=== PATIENT | female | born 1995 | race Hispanic/Latino ===

== ENCOUNTER 2018-05-30 16:42 | Emergency (ER) | payer BC, OTHER, SELFPAY ==
[2018-05-30 17:38] LABS: Urine Blood TRACE (NEG); Urine Glucose NEGATIVE (NEG); Urine Protein NEGATIVE (NEG)
[2018-05-30 17:47] LABS: Absolute Lymphocytes (CBC) 2.2 K/uL (0.7-4.9); Absolute Monocytes 0.6 K/uL (0.1-1.3); Absolute Neutrophil 6.5 K/uL (1.8-8.0); Basophils % 0.4 % (0-1.3); Eosinophils % 3.1 % (0-4.4); Hematocrit 37.3 % (36.0-45.0); Lymphocytes % 22.4 % (15.3-44.8); MCH 28.1 pg (27.0-35.0); MCV 80.8 fL (80-100); Monocytes % 6.1 % (3.3-12.3); RBC Red Blood Cell Count 4.61 M/uL (3.86-4.86)
[2018-05-30 17:57] LABS: Urine Bacteria <20 /HPF (<20); Urine Culture Reflex Order NOT NEEDED; Urine RBC <5 /HPF (NONE SEEN)
[2018-05-30 18:17] LABS: ALT/SGPT 27 U/L (12-78); AST/SGOT 13 U/L (15-37); Albumin 3.3 g/dL (3.4-5.0); Alkaline Phosphatase 57 U/L (45-117); BUN Blood Urea Nitrogen 9 mg/dL (7-18); Bicarbonate 26 mmol/L (21-32); Bilirubin Direct < 0.1 mg/dL (0-0.2); Bilirubin Total 0.2 mg/dL (0.2-1.0); Glucose Level 84 mg/dL (74-106); HCG, Quantitative 35308 mIU/mL (1-3); Lipase 157 U/L (73-393); Potassium 3.8 mmol/L (3.5-5.1); Protein, Total 6.8 g/dL (6.4-8.2); Sodium Level 139 mmol/L (136-145)
--- NOTE | 2018-05-30 18:34 | RAD REPORT ---
EXAM DESCRIPTION: US - Abdomen Exam Limited - 05/30/2018 6:17 pm CLINICAL HISTORY: Abdominal pain. COMPARISON: None. FINDINGS: The gallbladder wall is not thickened. A gallstone is not seen. A 4 millimeter polyp is s een The biliary tree is normal caliber. IMPRESSION: 4 millimeter gallbladder polyp.
--- NOTE | 2018-05-30 18:37 | RAD REPORT ---
EXAM DESCRIPTION: US - Matter Richard Hyde 1 - 05/30/2018 6:17 pm CLINICAL HISTORY: with vaginal bleeding COMPARISON: None FINDINGS: Single intrauterine is seen with a crown-rump length 5.5 centimeters. Amniotic f luid is normal. Placenta is anterior. A subchorionic/retroplacental bleed is not noted. The cervix me asures 3.6 centimeters. Cardiac activity 168 beats per minute. No significant free fluid is noted. IMPRESSION: Single live into breech presentation. Estimated gestational age 12 weeks 1 day BENEDICTO 12/11/2018 If a survey is desired it should be performed in about 6 weeks
--- NOTE | 2018-05-30 19:07 | EDPHYS ---
Physician Documentation [facility] Name: Bucky Goldberg Age: 23 yrs Sex: Female : 1995 Arrival Date: 05/30/2018 Time: 16:45 Bed 7 Private MD: Paulo Catherine S ED Physician Eliel Lee HPI: 05/30 17:10 This 23 yrs old Female presents to ER via Ambulatory with complaints of cp Vaginal Bleeding, + Preg <12wks. 17:10 The patient presents to the emergency department with abdominal pain, of the right cp upper quadrant and left upper quadrant, vaginal bleeding, that is light. The estimated gestational age is 12 weeks. 17:10 course: care: private OB physician, Dr. Fortune, Leakage of Fluid: cp none appreciated, Ultrasound: the patient had an ultrasound. 17:10 Previous pregnancies: the patient has never been . Associated signs and cp symptoms: Pertinent positives: vaginal bleeding, Pertinent negatives: abdominal pain, dysuria, frequency. 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 - Social history:: Smoking status: Patient/guardian denies using tobacco. - Ebola Screening: : Patient negative for fever greater than or equal to 101.5 degrees Fahrenheit, and additional compatible Ebola Virus Disease symptoms Patient denies exposure to infectious person Patient denies travel to an Ebola-affected area in the 21 days before illness onset No symptoms or risks identified at this time. ROS: 17:15 Constitutional: Negative for body aches, chills, fever, poor PO intake. cp 17:15 Eyes: Negative for injury, pain, redness, and discharge. cp 17:15 Cardiovascular: Negative for chest pain, palpitations. 17:15 Respiratory: Negative for cough, shortness of breath, wheezing. 17:15 Abdomen/GI: Negative for abdominal pain, nausea, vomiting, and diarrhea, constipation. 17:15 Back: Negative for pain at rest, pain with movement, radiated pain. 17:15 : Positive for vaginal bleeding, Negative for urinary symptoms. 17:15 Skin: Negative for cellulitis, rash. 17:15 Neuro: Negative for altered mental status, dizziness, headache, weakness. 17:15 All other systems are negative. Exam: 17:22 Constitutional: The patient appears in no acute distress, alert, awake, non-toxic, well cp developed, well nourished. 17:22 Head/Face: Normocephalic, atraumatic. cp 17:22 Eyes: Periorbital structures: appear normal, Conjunctiva: normal, no exudate, no injection, Sclera: no appreciated abnormality, Lids and lashes: appear normal, bilaterally. 17:22 ENT: External ear(s): are unremarkable, Nose: is normal, Mouth: is normal, Posterior pharynx: is normal, airway is patent, no erythema, no exudate. 17:22 Neck: External neck: is normal. 17:22 Chest/axilla: Inspection: normal, Palpation: is normal, no crepitus, no tenderness. 17:22 Cardiovascular: Rate: normal, Rhythm: regular. 17:22 Respiratory: the patient does not display signs of respiratory distress, Respirations: normal, no use of accessory muscles, no retractions, no splinting, no tachypnea, labored breathing, is not present, Breath sounds: are clear throughout, no decreased breath sounds, no stridor, no wheezing. 17:22 Abdomen/GI: Inspection: abdomen appears normal, Bowel sounds: active, all quadrants, Palpation: abdomen is soft and non-tender, in all quadrants, involuntary guarding, is not appreciated. 17:22 Back: CVA tenderness, is absent. 17:22 Skin: cellulitis, is not appreciated, no rash present. 17:22 Neuro: Orientation: to person, place \T\ time. Mentation: is normal, Cerebellar function: is grossly normal, Motor: moves all fours, strength is normal, Sensation: no obvious gross deficits, Gait: is steady. Vital Signs: 16:49 BP 120 / 73; Pulse 79; Resp 18; Temp 97.7; Pulse Ox 100% on R/A; Weight 79.38 kg; aj Height 5 ft. 0 in. (152.40 cm); 17:41 BP 114 / 67; Pulse 77; Resp 17; Pulse Ox 100% on R/A; Pain 0/10; tw2 18:40 BP 117 / 73; Pulse 85; Resp 17; Pulse Ox 100% on R/A; tw2 16:49 Body Mass Index 34.18 (79.38 kg, 152.40 cm) aj MDM: 16:55 Patient medically screened. cp 19:05 Data reviewed: vital signs, nurses notes, lab test result(s), radiologic studies, cp ultrasound. 19:05 Differential diagnosis: STD, ectopic . Counseling: I had a detailed discussion cp with the patient and/or guardian regarding: the historical points, exam findings, and any diagnostic results supporting the discharge/admit diagnosis, lab results, radiology results, the need for outpatient follow up, an OB/Gyne specialist, to return to the emergency department if symptoms worsen or persist or if there are any questions or concerns that arise at home. 05/30 17:03 Order name: Urine Culture [facility] 05/30 17:03 Order name: Urine Microscopic Only; Complete Time: 18:39 [facility] 05/30 18:40 Interpretation: Normal except: UWBC 5-10; SQEPI 5-10. 05/30 17:12 Order name: Urine Dipstick--Ancillary (enter results); Complete Time: 18:39 05/30 17:12 Order name: Urine --Ancillary (enter results); Complete Time: 18:39 05/30 17:18 Order name: Quantitative Hcg; Complete Time: 18:39 05/30 18:40 Interpretation: HCGQ 01739; Reviewed. 05/30 17:18 Order name: Abo/rh Typing; Complete Time: 19:03 05/30 17:18 Order name: Urine Test (obtain specimen); Complete Time: 17:40 05/30 17:18 Order name: Basic Metabolic Panel; Complete Time: 18:39 05/30 18:41 Interpretation: Normal except: CL 109; CRE 0.50. 05/30 17:18 Order name: CBC with Diff; Complete Time: 18:39 05/30 17:18 Order name: LFT's; Complete Time: 18:39 05/30 18:41 Interpretation: Normal except: AST 13; ALB 3.3; A/G 0.9. cp 05/30 17:18 Order name: Lipase; Complete Time: 18:39 cp 05/30 17:24 Order name: US Abdomen Limited: RUQ/epigastric; Complete Time: 18:39 cp 05/30 18:14 Order name: Matter Eval Tm 1; Complete Time: 18:39 EDMS 05/30 17:18 Order name: IV Saline Lock; Complete Time: 17:32 cp 05/30 17:18 Order name: Labs collected and sent; Complete Time: 17:32 cp 05/30 17:18 Order name: NPO; Complete Time: 17:32 cp 05/30 17:18 Order name: Urine Dipstick-Ancillary (obtain specimen); Complete Time: 17:32 cp Administered Medications: No medications were administered Point of Care Testing: Urine : 17:41 hCG Reading: Positive; tw2 Disposition: 05/30/18 19:07 Discharged to Home. Impression: Threatened . - Condition is Stable. - Discharge Instructions: Threatened Miscarriage, Vaginal Bleeding During , First Trimester, Pelvic Rest. - Prescriptions for Vitamin 27- 0.8 mg Oral Tablet - take 1 tablet by ORAL route once daily; 60 tablet. - Work release form, Medication Reconciliation Form, Thank You Letter, Antibiotic Education, Prescription Opioid Use form. - Follow up: Private Physician; When: 1 week; Reason: Recheck today's complaints. - Problem is new. - Symptoms are unchanged. Addendum: 06/05/2018 07:45 Co-signature as Attending Physician, Eliel Lee MD. r n Signatures: Dispatcher [employer] [facility] Charity Crooks RN RN aj Nieto, Roman, MD MD rn Krenek, Amber, RN RN ak1 iJmenez Moyer PA PA cp Corrections: (The following items were deleted from the chart) 05/30 18:14 17:25 Transvaginal Ob+US.RAD.BRZ ordered. [facility] 19:37 19:07 05/30/2018 19:07 Discharged to Home. Impression: Threatened . Condition ak1 is Stable. Forms are Medication Reconciliation Form, Thank You Letter, Antibiotic Education, Prescription Opioid Use. Follow up: Private Physician; When: 1 week; Reason: Recheck today's complaints. Problem is new. Symptoms are unchanged. cp
--- NOTE | 2018-05-30 19:07 | ER ---
Nurse's Notes [facility] Name: Bucky Goldberg Age: 23 yrs Sex: Female : 1995 Arrival Date: 05/30/2018 Time: 16:45 Bed 7 Private MD: Paulo Catherine S Diagnosis: Threatened Presentation: 05/30 16:47 Presenting complaint: Patient states: Vaginal spotting on 3 separate occasions during aj this . Reports that spotting is heavier today and has not stopped. Denies pain. Transition of care: patient was not received from another setting of care. Onset of symptoms was May 30, 2018. Risk Assessment: Do you want to hurt yourself or someone else? Patient reports no desire to harm self or others. Initial Sepsis Screen: Does the patient meet any 2 criteria? No. Patient's initial sepsis screen is negative. Does the patient have a suspected source of infection? No. Patient's initial sepsis screen is negative. Care prior to arrival: None. 16:47 Method Of Arrival: Ambulatory 16:47 Acuity: GRACIELA 3 Triage Assessment: 16:49 General: Appears in no apparent distress. comfortable, Behavior is calm, cooperative, aj appropriate for age. Pain: Denies pain. Neuro: Level of Consciousness is awake, alert, obeys commands, Oriented to person, place, time, situation, Appropriate for age. Respiratory: Airway is patent Respiratory effort is even, unlabored, Respiratory pattern is regular, symmetrical. : Reports vaginal bleeding that is spotty. Derm: Skin is intact, is healthy with good turgor, Skin is pink, warm \\T\\ dry. normal. COSMETIC SALES: 16:49 LMP 03/08/2018 aj 17:10 1, Full Term 0, 0, Living 0, Verified cp Historical: - Allergies: 16:49 Flonase; aj 16:49 Naproxen; aj - Home Meds: 16:49 None [Active]; aj - PMHx: 16:49 None; aj - PSHx: 16:49 Tonsillectomy; Adenoids; aj - Immunization history:: Adult Immunizations up to date. - Social history:: Smoking status: Patient/guardian denies using tobacco. - Ebola Screening: : Patient negative for fever greater than or equal to 101.5 degrees Fahrenheit, and additional compatible Ebola Virus Disease symptoms Patient denies exposure to infectious person Patient denies travel to an Ebola-affected area in the 21 days before illness onset No symptoms or risks identified at this time. Screenin:59 Abuse screen: Denies threats or abuse. Nutritional screening: No deficits noted. tw2 Tuberculosis screening: No symptoms or risk factors identified. Fall Risk None identified. Assessment: 17:00 Obstetrical Assessment: Patient reports spotting "3 other times during this tw2 but this time it hasnt stopped". General: Appears in no apparent distress. Behavior is calm, cooperative, appropriate for age. Pain: Denies pain. Neuro: Level of Consciousness is awake, alert, obeys commands, Oriented to person, place, time, situation. Cardiovascular: Denies chest pain, shortness of breath, Heart tones S1 S2 Capillary refill < 3 seconds Patient's skin is warm and dry. Respiratory: Airway is patent Respiratory effort is even, unlabored, Respiratory pattern is regular, symmetrical, Breath sounds are clear bilaterally. GI: No signs and/or symptoms were reported involving the gastrointestinal system. : Reports vaginal bleeding that is bright red, light flow, "but it is still there even when i wiped". EENT: No signs and/or symptoms were reported regarding the EENT system. Derm: No signs and/or symptoms reported regarding the dermatologic system. Musculoskeletal: Range of motion: intact in all extremities. 17:41 Reassessment: Patient appears in no apparent distress at this time. No changes from tw2 previously documented assessment. Patient and/or family updated on plan of care and expected duration. Pain level reassessed. Patient is alert, oriented x 3, equal unlabored respirations, skin warm/dry/pink. 18:40 Reassessment: Patient appears in no apparent distress at this time. No changes from tw2 previously documented assessment. Patient and/or family updated on plan of care and expected duration. Pain level reassessed. Patient is alert, oriented x 3, equal unlabored respirations, skin warm/dry/pink. Vital Signs: 16:49 BP 120 / 73; Pulse 79; Resp 18; Temp 97.7; Pulse Ox 100% on R/A; Weight 79.38 kg; aj Height 5 ft. 0 in. (152.40 cm); 17:41 BP 114 / 67; Pulse 77; Resp 17; Pulse Ox 100% on R/A; Pain 0/10; tw2 18:40 BP 117 / 73; Pulse 85; Resp 17; Pulse Ox 100% on R/A; tw2 16:49 Body Mass Index 34.18 (79.38 kg, 152.40 cm) Vitals: 17:33 Heart Tones <12 weeks, Transvag US ordered. tw2 ED Course: 16:45 Patient arrived in ED. mr 16:45 Paulo Catherine MD is Private Physician. mr 16:48 Triage completed. aj 16:49 Arm band placed on right wrist. Patient placed in an exam room. aj 16:53 Diana Gore, RN is Primary Nurse. tw2 16:55 Jimenez Moyer PA is PHCP. cp 16:55 Eliel Lee MD is Attending Physician. cp 16:55 Bed in low position. Call light in reach. Pulse ox on. NIBP on. tw2 17:03 Urine collected: clean catch specimen, cloudy, piper colored. jb1 17:20 Inserted saline lock: 22 gauge in right antecubital area, using aseptic technique. tw2 Blood collected. 18:13 Ultrasound completed. Patient tolerated well. sg3 18:17 US Abdomen Limited: RUQ/epigastric In Process Unspecified. EDMS 18:17 Matter Eval Tm 1 In Process Unspecified. EDMS 19:19 No provider procedures requiring assistance completed. IV discontinued, intact, ak1 bleeding controlled, No redness/swelling at site. Pressure dressing applied. Administered Medications: No medications were administered Point of Care Testing: Urine : 17:41 hCG Reading: Positive; tw2 Outcome: 19:07 Discharge ordered by . cp 19:19 Discharged to home ambulatory, with family. ak1 19:19 Condition: good 19:19 Discharge instructions given to patient, Instructed on discharge instructions, follow up and referral plans. no drinking with medication, no driving heavy equipment, medication usage, Demonstrated understanding of instructions, follow-up care, medications, Prescriptions given X 1. 19:37 Patient left the ED. ak1 Signatures: Dispatcher [employer] EDMS [employer] jb1 Charity Crooks RN RN aj Rivera, Mary mr Piper Polo RN SATURNINO ak1 Jimenez Moyer PA PA Diana Santa RN RN tw2 Raven Gaona sg3 Corrections: (The following items were deleted from the chart) 17:41 17:33 Heart Tones <12 weeks, Transvag US . tw2 tw2
== END 2018-05-30 19:37 | disposition home or self-care (01) ==
LOC: ER 16:42
DX: O20.0 Threatened abortion (principal); Z3A.12 12 weeks gestation of pregnancy; Z88.6 Allergy status to analgesic agent; Z88.8 Allergy status to other drugs, medicaments and biological substances
CPT/HCPCS: 36415; 76705; 76801; 80048; 80076; 81003; 81015; 81025; 83690; 84702; 85025; 86900; 86901; 87086; 87088; 99284

== ENCOUNTER 2025-05-21 15:07 | Emergency (ER) | payer OTHER ==
--- OUTSIDE RECORDS SUMMARY | 2025-05-21 15:13 | XMS REPORT | Continuity of Care Document ---
Author Name Unknown Address [address] [facility] [address] [place] [address] [facility] Address [address] [facility] [place] [address] Care Team Providers Care Personal Finance Instructor Name Role Phone Elham Echavarria Primary Care Physician + [phone] [facility] Attending Clinician Unavailable DEBRA RAMIREZ Attending Clinician Unavailable Lea Wolf Attending Clinician [phone] JAMIE PAPPAS Attending Clinician Unavail Kody Velasco MD Attending Clinician [phone] Jamie Wilkins Attending Clinician + Doctor Unassigned, [place] Attending Clinician WILBUR Duncan Attending Clinician Unavailable MANUELA ELDER Attending Clinician Unavailable Manuela Elder MD Attending Clinician [phone] Elham Echavarria Attending Clinician [phone] PABLO ALMENDAREZ Attending Clinician UnavailPABLO Do Attending Clinician Unavailnorma mcdaniel Nurse, [facility] Attending Clinician Un available Pablo Almendarez MD Attending Clinician + [phone] [facility] Attending Clinician Unavailnorma Gregory PA-C, [place] Attending Clinician [phone] KODY LANDIS Attending Clinician Unavailable Wilbur Collins MD Attending Clinician [phone] ELHAM READ Attending Clinician Unavailable CONCEPCION LIND Attending Clinician Unavailable Paulo Catherine MD Attending Clinician [phone] Concepcion Callaway Attending Clinician [phone] Provider, [facility] Attending Clinician Un available Crystal Welsh MD Attending Clinician [phone] Corinne Mayes Attending Clinician [phone] Unknown, Attending Attending Clinician Unavailab MANUELA Jaffe Admitting Clinician Unavailable Payers Payer Name Policy Type Policy Number Effective Date Expirati on Date Source [facility] FED SELECT [id number] 2014 00:00:00 [facility] 9 [id number] 2025 00:00:00 [facility] 3 [id number] 2025 00:00:00 Problems Condition Name Condition Details Condition Category Status Onset Date Resolution Date Last Treatment Date Treating Clinician Comments Source Family history of breast cancer Family history of breast cancer Disease Active 01-01 00:00: 00 Overview: Formattin g of this note might be different from the original. Mother dx at age 47 [facility] Other general counseling and advice for contracept dave management Other general counseling and advice for contracept dave management Disease Active 2021-08 00:00: 00 [facility] Vaginal odor Vaginal odor Disease Active 2021-08 00:00: 00 [facility] LEW (obstructi ve sleep apnea) LEW (obstructi ve sleep apnea) Disease Active 01-08 00:00: 00 [facility] Essential hypertensi on Essential hypertensi on Disease Active 01-08 00:00: 00 [facility] Need for HPV vaccine Need for HPV vaccine Disease Active 12-26 00:00: 00 [facility] Morbid obesity with body mass index of 40.0-49.9 Morbid obesity with body mass index of 40.0-49.9 Disease Active 12-26 00:00: 00 [facility] Allergic reaction Allergic reaction Disease Active 08-10 00:00: 00 [facility] Allergies, Adverse Reactions, Alerts Allergy Name Allergy Type Status Severity Reaction(s) Onset Date Inactive Date Treating Clinician Comments Source Fluticas one Propensi ty to adverse reaction s Active Anaphylaxis 03-17 00:00: 00 Jennifer pendleton Naproxen Sodium Propensi ty to adverse reaction s Active Anaphylaxis 03-17 00:00: 00 Jennifer Chung l Naproxen Propensi ty to adverse reaction s Active Anaphylaxis 08-10 00:00: 00 [facility] NAPROXEN DRUG INGREDI Active Anaphylaxis 08-10 00:00: 00 [facility] Fluticas one Propiona te Propensi ty to adverse reaction s Active Other - See comments 08-17 00:00: 00 Swelling of eyes/thro at swelling. [facility] FLUTICAS ONE PROPIONA TE DRUG INGREDI Active Other-Cmnt 08-17 00:00: 00 [facility] Social History Social Habit Start Date Stop Date Quantity Comments Source ASSERTION Not Jennifer Gonzalez - External Gender identity Conchis Gonzalez - External Sexual orientation Marjan Gonzalez - External History SDOH Alcohol Frequency [facility] History SDOH [facility] Alcohol Binge [facility] Alcoholic beverage intake 2025-03-18 00:00:00 2025-03-18 00:00:00 Lifetime non-drinker (finding) Jennifer Gonzalez - External History of Social function 2025-03-18 00:00:00 2025-03-18 00:00:00 Jennifer Gonzalez - External Tobacco use and exposure 2025-03-18 00:00:00 2025-03-18 00:00:00 Smokeless tobacco non-user Jennifer Gonzalez - External Sex 2023-08-28 14:06:24 2023-08-28 14:06:24 Female (finding) Jennifer Gonzalez - External Exposure to SARS-CoV-2 (event) 2022-12-22 00:00:00 2023-01-01 14:49:00 Not sure [facility] Alcohol intake 2023-01-01 00:00:00 2023-01-01 00:00:00 Current drinker of alcohol (finding) [facility] Alcohol Comment 2021-12-26 00:00:00 2021-12-26 00:00:00 ocassional [facility] Sex assigned at 1995 00:00:00 1995 00:00:00 [facility] Smoking Status Start Date Stop Date Source Never smoked tobacco Jennifer Gonzalez - External Medications Ordered Medication Name Filled Medication Name Start Date Stop Date Current Medication? Ordering Clinician Indication Dosage Frequency Signature (SIG) Comments Components Source metroNIDAZO LE 500 mg tablet 01-14 00:00: 00 Yes [id number] 500mg Take 1 tablet by mouth every 12 (twelve) hours. [facility] nystatin 100,000 unit/gram cream 01-13 00:00: 00 Yes [id number] Apply to area(s) 2 (two) times daily. [facility] norethindro ne (RADHA) 0.35 mg tablet 01-13 00:00: 00 Yes [id number] 1{tbl} Take 1 tablet by mouth every morning. [facility] metoprolol succinate XL 25 mg 24 hr tablet 2022-08 2-14 00:00: 00 Yes [id number] 25mg Take 1 tablet by mouth in the morning. [facility] metoprolol succinate XL 25 mg 24 hr tablet 9-15 00:00: 00 Yes [id number] 25mg Take 1 tablet by mouth in the morning. [facility] norethindro ne 0.35 mg tablet 04-03 00:00: 00 01-13 00:00 :00 No [id number] 1{tbl} Take 1 tablet by mouth in the morning. [facility] RADHA 0.35 mg tablet 03-26 00:00: 00 01-13 00:00 :00 No [id number] 1{tbl} TAKE 1 TABLET BY MOUTH EVERY DAY IN THE MORNING [facility] norethindro ne 0.35 mg tablet 01-01 00:00: 00 03-26 00:00 :00 No [id number] 1{tbl} Take 1 tablet by mouth in the morning. [facility] metroNIDAZO LE 500 mg tablet 2021-08- 00:00: 00 01-14 00:00 :00 No [id number] 500mg Take 1 tablet by mouth in the morning and 1 tablet in the evening. [facility] metoprolol succinate XL 25 mg 24 hr tablet 01-08 00:00: 00 04-19 00:00 :00 No [id number] 25mg Take 1 tablet by mouth daily. [facility] cefTRIAXone (ROCEPHIN) injection 500 mg 01-02 22:00: 00 01-02 21:09 :00 No [id number] 500mg [facility] metoprolol succinate XL 25 mg 24 hr tablet 01-02 00:00: 00 01-08 00:00 :00 No [id number] 25mg Take 1 tablet by mouth daily. [facility] AZITHROMYCI N 500 mg tablet 01-02 00:00: 00 01-04 04:59 :00 No [id number] 1000mg TAKE 2 TABLETS BY MOUTH DAILY FOR 1 DAY. [facility] azithromyci n 500 mg tablet 12-28 00:00: 00 12-30 04:59 :00 No [id number] 1000mg Take 2 tablets by mouth daily for 1 day. [facility] norgestimat e-ethinyl estradioL (ESTARYLLA) 0.25-35 mg-mcg per tablet 12-26 00:00: 00 01-13 00:00 :00 No [id number] 1{tbl} Take 1 tablet by mouth daily. [facility] amLODIPine 5 mg tablet 12-22 00:00: 00 01-02 00:00 :00 No [id number] 5mg Take 1 tablet by mouth daily. [facility] norgestimat e-ethinyl estradioL (ESTARYLLA) 0.25-35 mg-mcg per tablet 02-15 00:00: 00 12-26 00:00 :00 No [id number] 1{tbl} Take 1 tablet by mouth daily. [facility] Immunizations Ordered Immunization Name Filled Immunization Name Date Status Comments Source Influenza Virus Vaccine Quad .5 mL IM 6+ MO (FLUZONE/FLULAVAL/F LUARIX) 2024-01-15 00:00:00 Completed [facility] HPV9 2024-01-15 00:00:00 Completed [facility] Influenza Virus Vaccine Quad .5 mL IM 6+ MO (FLUZONE/FLULAVAL/F LUARIX) 2024-01-15 00:00:00 Completed [facility] HPV9 2024-01-15 00:00:00 Completed [facility] Influenza Virus Vaccine Quad .5 mL IM 6+ MO (FLUZONE/FLULAVAL/F LUARIX) 2024-01-14 14:45:00 Completed [facility] HPV9 2024-01-14 14:45:00 Completed [facility] Influenza Virus Vaccine Quad .5 mL IM 6+ MO (FLUZONE/FLULAVAL/F LUARIX) 2023-10-30 00:00:00 Completed [facility] HPV9 2023-10-30 00:00:00 Completed [facility] Influenza Virus Vaccine Quad .5 mL IM 6+ MO (FLUZONE/FLULAVAL/F LUARIX) 2023-08-01 00:00:00 Completed [facility] HPV9 2023-08-01 00:00:00 Completed [facility] Influenza Virus Vaccine Quad .5 mL IM 6+ MO (FLUZONE/FLULAVAL/F LUARIX) 2023-07-17 00:00:00 Completed [facility] HPV9 2023-07-17 00:00:00 Completed [facility] HPV 9 (Human Papillomavirus) HPV 9 (Human Papillomavirus) 2023-01-01 00:00:00 Completed Jennifer Brooks HPV9 2023-01-01 00:00:00 Completed [facility] HPV9 2023-01-01 00:00:00 Completed [facility] HPV9 2023-01-01 00:00:00 Completed [facility] HPV9 2023-01-01 00:00:00 Completed [facility] HPV9 2023-01-01 00:00:00 Completed [facility] Influenza Virus Vaccine Quad .5 mL IM 6+ MO (FLUZONE/FLULAVAL/F LUARIX) 2022-01-13 00:00:00 Completed [facility] HPV9 2022-01-13 00:00:00 Completed [facility] Influenza Virus Vaccine Quad .5 mL IM 6+ MO (FLUZONE/FLULAVAL/F LUARIX) 2022-01-12 00:00:00 Completed [facility] HPV9 2022-01-12 00:00:00 Completed [facility] Influenza Virus Vaccine Quad .5 mL IM 6+ MO (FLUZONE/FLULAVAL/F LUARIX) 2022-01-09 00:00:00 Completed [facility] HPV9 2022-01-09 00:00:00 Completed [facility] HPV 9 (Human Papillomavirus) HPV 9 (Human Papillomavirus) 2021-12-26 00:00:00 Completed Jennifer Brooks HPV9 2021-12-26 00:00:00 Completed [facility] HPV9 2021-12-26 00:00:00 Completed [facility] HPV9 2021-12-26 00:00:00 Completed [facility] HPV9 2021-12-26 00:00:00 Completed [facility] HPV9 2021-12-26 00:00:00 Completed [facility] HPV9 2021-12-26 00:00:00 Completed [facility] HPV9 2021-12-26 00:00:00 Completed [facility] HPV9 2021-12-26 00:00:00 Completed [facility] HPV9 2021-12-26 00:00:00 Completed [facility] HPV9 2021-12-26 00:00:00 Completed [facility] HPV9 2021-12-26 00:00:00 Completed [facility] HPV9 2021-12-26 00:00:00 Completed [facility] HPV9 2021-12-26 00:00:00 Completed [facility] HPV9 2021-12-26 00:00:00 Completed [facility] HPV9 2021-12-26 00:00:00 Completed [facility] HPV9 2021-12-26 00:00:00 Completed [facility] HPV9 2021-12-26 00:00:00 Completed [facility] HPV9 2021-12-26 00:00:00 Completed [facility] HPV9 2021-12-26 00:00:00 Completed [facility] HPV9 2021-12-26 00:00:00 Completed [facility] HPV9 2021-12-26 00:00:00 Completed [facility] HPV 9 (Human Papillomavirus) HPV 9 (Human Papillomavirus) 2020-12-26 00:00:00 Completed Jennifer Brooks HPV9 2020-12-26 00:00:00 Completed [facility] HPV9 2020-12-26 00:00:00 Completed [facility] HPV9 2020-12-26 00:00:00 Completed [facility] HPV9 2020-12-26 00:00:00 Completed [facility] HPV9 2020-12-26 00:00:00 Completed [facility] HPV9 2020-12-26 00:00:00 Completed [facility] HPV9 2020-12-26 00:00:00 Completed [facility] HPV9 2020-12-26 00:00:00 Completed [facility] HPV9 2020-12-26 00:00:00 Completed [facility] HPV9 2020-12-26 00:00:00 Completed [facility] HPV9 2020-12-26 00:00:00 Completed [facility] HPV9 2020-12-26 00:00:00 Completed [facility] HPV9 2020-12-26 00:00:00 Completed [facility] HPV9 2020-12-26 00:00:00 Completed [facility] HPV9 2020-12-26 00:00:00 Completed [facility] HPV9 2020-12-26 00:00:00 Completed [facility] HPV9 2020-12-26 00:00:00 Completed [facility] HPV9 2020-12-26 00:00:00 Completed [facility] HPV9 2020-12-26 00:00:00 Completed [facility] HPV9 2020-12-26 00:00:00 Completed [facility] HPV9 2020-12-26 00:00:00 Completed [facility] Influenza Virus Vaccine, No Preserv, age 6 months and up Influenza Virus Vaccine, No Preserv, age 6 months and up 2020-04-29 00:00:00 Completed Jennifer Brooks Influenza Virus Vaccine Quad IM 3+ YRS 2020-04-29 00:00:00 Completed [facility] Influenza Virus Vaccine Quad IM 3+ YRS 2020-04-29 00:00:00 Completed [facility] Influenza Virus Vaccine Quad IM 3+ YRS 2020-04-29 00:00:00 Completed [facility] Influenza Virus Vaccine Quad IM 3+ YRS 2020-04-29 00:00:00 Completed [facility] Influenza Virus Vaccine Quad IM 3+ YRS 2020-04-29 00:00:00 Completed [facility] Influenza Virus Vaccine Quad IM 3+ YRS 2020-04-29 00:00:00 Completed [facility] Influenza Virus Vaccine Quad IM 3+ YRS 2020-04-29 00:00:00 Completed [facility] Influenza Virus Vaccine Quad IM 3+ YRS 2020-04-29 00:00:00 Completed [facility] Influenza Virus Vaccine Quad IM 3+ YRS 2020-04-29 00:00:00 Completed [facility] Influenza Virus Vaccine Quad IM 3+ YRS 2020-04-29 00:00:00 Completed [facility] Influenza Virus Vaccine Quad IM 3+ YRS 2020-04-29 00:00:00 Completed [facility] Influenza Virus Vaccine Quad IM 3+ YRS 2020-04-29 00:00:00 Completed [facility] Influenza Virus Vaccine Quad IM 3+ YRS 2020-04-29 00:00:00 Completed [facility] Influenza Virus Vaccine Quad IM 3+ YRS 2020-04-29 00:00:00 Completed [facility] Influenza Virus Vaccine Quad IM 3+ YRS 2020-04-29 00:00:00 Completed [facility] Influenza Virus Vaccine Quad IM 3+ YRS 2020-04-29 00:00:00 Completed [facility] Influenza Virus Vaccine Quad IM 3+ YRS 2020-04-29 00:00:00 Completed [facility] Influenza Virus Vaccine Quad IM 3+ YRS 2020-04-29 00:00:00 Completed [facility] Influenza Virus Vaccine Quad IM 3+ YRS 2020-04-29 00:00:00 Completed [facility] Influenza Virus Vaccine Quad IM 3+ YRS 2020-04-29 00:00:00 Completed [facility] Influenza Virus Vaccine Quad IM 3+ YRS 2020-04-29 00:00:00 Completed [facility] Influenza Virus Vaccine, No Preserv, age 6 months and up Influenza Virus Vaccine, No Preserv, age 6 months and up 2019-06-21 00:00:00 Completed Jennifer Brooks Influenza Virus Vaccine Quad .5 mL IM 6+ MO 2019-06-21 00:00:00 Completed [facility] Influenza Virus Vaccine Quad .5 mL IM 6+ MO 2019-06-21 00:00:00 Completed [facility] Influenza Virus Vaccine Quad .5 mL IM 6+ MO 2019-06-21 00:00:00 Completed [facility] Influenza Virus Vaccine Quad .5 mL IM 6+ MO 2019-06-21 00:00:00 Completed [facility] Influenza Virus Vaccine Quad .5 mL IM 6+ MO 2019-06-21 00:00:00 Completed [facility] Influenza Virus Vaccine Quad .5 mL IM 6+ MO 2019-06-21 00:00:00 Completed [facility] Influenza Virus Vaccine Quad .5 mL IM 6+ MO 2019-06-21 00:00:00 Completed [facility] Influenza Virus Vaccine Quad .5 mL IM 6+ MO 2019-06-21 00:00:00 Completed [facility] Influenza Virus Vaccine Quad .5 mL IM 6+ MO 2019-06-21 00:00:00 Completed [facility] Influenza Virus Vaccine Quad .5 mL IM 6+ MO 2019-06-21 00:00:00 Completed [facility] Influenza Virus Vaccine Quad .5 mL IM 6+ MO 2019-06-21 00:00:00 Completed [facility] Influenza Virus Vaccine Quad .5 mL IM 6+ MO 2019-06-21 00:00:00 Completed [facility] Influenza Virus Vaccine Quad .5 mL IM 6+ MO 2019-06-21 00:00:00 Completed [facility] Influenza Virus Vaccine Quad .5 mL IM 6+ MO 2019-06-21 00:00:00 Completed [facility] Influenza Virus Vaccine Quad .5 mL IM 6+ MO 2019-06-21 00:00:00 Completed [facility] Influenza Virus Vaccine Quad .5 mL IM 6+ MO 2019-06-21 00:00:00 Completed [facility] Influenza Virus Vaccine Quad .5 mL IM 6+ MO 2019-06-21 00:00:00 Completed [facility] Influenza Virus Vaccine Quad .5 mL IM 6+ MO 2019-06-21 00:00:00 Completed [facility] Influenza Virus Vaccine Quad .5 mL IM 6+ MO 2019-06-21 00:00:00 Completed [facility] Influenza Virus Vaccine Quad .5 mL IM 6+ MO 2019-06-21 00:00:00 Completed [facility] Influenza Virus Vaccine Quad .5 mL IM 6+ MO (FLUZONE/FLULAVAL/F LUARIX) 2019-06-21 00:00:00 Completed [facility] Vital Signs Vital Name Observation Time Observation Value Comments S ource Systolic blood pressure 2025-03-18 13:30:00 132 mm[Hg] Jennifer turcios - External Diastolic blood pressure 2025-03-18 13:30:00 84 mm[Hg] Jennifer Seybo ld - External Heart rate 2025-03-18 13:30:00 96 /min Ruby meyers Seybdorothea - External Body temperature 2025-03-18 13:30:00 36.61 Melinda Jennifer Gonzalez - External Respiratory rate 2025-03-18 13:30:00 18 /min Jennifer Gonzalez - External Body height 2025-03-18 13:30:00 152.4 cm Conchis padilla Seybold - External Body weight 2025-03-18 13:30:00 105.688 kg Conchis padilla Seybold - External BMI 2025-03-18 13:30:00 45.50 kg/m2 Conchis padilla Seybold - External Oxygen saturation in Arterial blood by Pulse oximetry 2025-03-18 13:30:00 98 /min Jennifer Cesar ld - External Systolic blood pressure 2024-01-14 19:42:00 135 mm[Hg] [facility] Diastolic blood pressure 2024-01-14 19:42:00 90 mm[Hg] [facility] Heart rate 2024-01-14 19:42:00 87 /min [facility] Body temperature 2024-01-14 19:42:00 35.67 Melinda [facility] Respiratory rate 2024-01-14 19:42:00 18 /min [facility] Body height 2024-01-14 19:42:[address] [facility] Body weight 2024-01-14 19:42:[address] [facility] BMI 2024-01-14 19:42:00 44.53 kg/m2 [facility] Systolic blood pressure 2023-04-03 13:28:00 123 mm[Hg] [facility] Diastolic blood pressure 2023-04-03 13:28:00 85 mm[Hg] [facility] Heart rate 2023-04-03 13:14:00 82 /min [facility] Body temperature 2023-04-03 13:14:00 36.28 Melinda [facility] Respiratory rate 2023-04-03 13:14:00 18 /min [facility] Body height 2023-04-03 13:14:00 152.4 cm [facility] Body weight 2023-04-03 13:14:00 100.2 kg [facility] BMI 2023-04-03 13:14:00 43.14 kg/m2 [facility] Systolic blood pressure 2023-01-01 19:49:00 139 mm[Hg] [facility] Diastolic blood pressure 2023-01-01 19:49:00 90 mm[Hg] [facility] Heart rate 2023-01-01 19:49:00 95 /min [facility] Body temperature 2023-01-01 19:49:00 35.67 Melinda [facility] Respiratory rate 2023-01-01 19:49:00 18 /min [facility] Body height 2023-01-01 19:49:00 152.4 cm [facility] Body weight 2023-01-01 19:49:00 96.117 kg [facility] BMI 2023-01-01 19:49:00 41.38 kg/m2 [facility] Systolic blood pressure 2022-06-06 18:48:00 144 mm[Hg] [facility] Diastolic blood pressure 2022-06-06 18:48:00 93 mm[Hg] [facility] Heart rate 2022-06-06 18:48:00 105 /min [facility] Body temperature 2022-06-06 18:47:00 36.61 Melinda [facility] Respiratory rate 2022-06-06 18:47:00 18 /min [facility] Body height 2022-06-06 18:47:00 152.4 cm [facility] Body weight 2022-06-06 18:47:00 93.243 kg [facility] BMI 2022-06-06 18:47:00 40.15 kg/m2 [facility] Systolic blood pressure 2022-04-03 18:49:00 157 mm[Hg] [facility] Diastolic blood pressure 2022-04-03 18:49:00 104 mm[Hg] [facility] Heart rate 2022-04-03 18:49:00 80 /min Un[facility] Body temperature 2022-04-03 18:49:00 36.94 Melinda [facility] Respiratory rate 2022-04-03 18:49:00 18 /min [facility] Body height 2022-04-03 18:49:00 152.4 cm [facility] Body weight 2022-04-03 18:49:00 93.441 kg [facility] BMI 2022-04-03 18:49:00 40.23 kg/m2 [facility] Oxygen saturation in Arterial blood by Pulse oximetry 2022-04-03 18:49:00 98 /min [facility] Systolic blood pressure 2022-01-02 21:07:00 139 mm[Hg] [facility] Diastolic blood pressure 2022-01-02 21:07:00 87 mm[Hg] [facility] Heart rate 2022-01-02 21:07:00 91 /min [facility] Body temperature 2022-01-02 21:07:00 36.89 Melinda [facility] Body height 2022-01-02 21:07:00 152.4 cm [facility] Body weight 2022-01-02 21:07:[address] [facility] BMI 2022-01-02 21:07:00 41.05 kg/m2 [facility] Systolic blood pressure 2021-12-26 19:26:00 112 mm[Hg] [facility] Diastolic blood pressure 2021-12-26 19:26:00 78 mm[Hg] [facility] Heart rate 2021-12-26 18:51:00 94 /min Unive [facility] Body temperature 2021-12-26 18:51:00 36.89 Melinda [facility] Body height 2021-12-26 18:51:00 152.4 cm [facility] Body weight 2021-12-26 18:51:00 93.441 kg [facility] BMI 2021-12-26 18:51:00 40.23 kg/m2 [facility] Procedures Procedure Date / Time Performed Performing Clinician Source MAMMO 3D SINTIA DIAGNOSTIC BILAT 2025-03-18 00:00:00 Jennifer Gonzalez - External US RT BREAST TARGETED 2025-03-18 00:00:00 Jennifer Gonzalez - External POCT TEST 2023-04-03 13:33:00 Walter Pappas [facility] NOTICE OF PRIVACY PRACTICES 2023-04-03 13:00:32 Doctor Unassigned, [place] [facility] HIV 1/2 AG-AB WITH REFLEX 2023-01-01 21:27:00 Jamie Pappas [facility] SYPHILIS IGG/IGM 2023-01-01 21:27:00 Isak Pappas [facility] GARDASIL 9 (HPV 9V) VACCINE 2023-01-01 19:57:20 Jamie Pappas [facility] ASSIGNMENT OF BENEFITS 2023-01-01 19:27:30 Docto r Unassigned, [place] [facility] ASSIGNMENT OF BENEFITS 2022-06-06 18:13:23 Docto r Unassigned, [place] [facility] COVID-19 (ID NOW RAPID TESTING) 2022-04-03 21:13:00 Manuela Elder [facility] LIPASE 2022-04-03 20:34:[address] [facility] COMP. METABOLIC PANEL (00616) 2022-04-03 20:34:00 Manuela Elder [facility] CBC WITH DIFF 2022-04-03 20:34:00 Manuela Elder [facility] POCT TEST 2022-04-03 20:27:00 Manuela Elder [facility] XR CHEST 1 VW 2022-04-03 19:29:33 Manuela Elder [facility] CONSENT/REFUSAL FOR DIAGNOSIS AND TREATMENT 2022-04-03 18:24:53 Doctor Unassigned, [place] [facility] INSURANCE CORRESPONDENCE 2021-12-28 05:01:00 Doc tor Unassigned, [place] [facility] GARDASIL 9 (HPV 9V) VACCINE 2021-12-26 19:28:01 Wilbur Collins [facility] POCT TEST 2021-12-26 00:00:00 Wilbur Collins [facility] Plan of Care Planned Activity Planned Date Details Comments Source Encounters Start Date/Time End Date/Time Encounter Type Admission Type Attending [facility] Care Department Encounter ID Source 2021-06-02 02:02:28 Emergency [facility] [id number] [facility] 2025-04-01 14:00:00 2025-04-01 14:00:00 Outpatient JENNIFER MANN [id number] [facility] 2025-04-01 00:00:00 2025-04-01 00:00:00 Outpatient JENNIFER MANN [id number] [facility] 2025-04-01 00:00:00 2025-04-01 00:00:00 Outpatient [facility] JNENIFER MANN [id number] [facility] 2025-03-30 13:20:00 2025-03-30 13:20:00 Outpatient JENNIFER MANN [id number] [facility] 2025-03-25 14:00:00 2025-03-25 14:00:00 Outpatient DEBRA RAMIREZ [id number] [facility] 2025-03-18 13:30:00 2025-03-18 13:30:00 Outpatient DEBRA RAMIREZ [id number] [facility] 2025-03-17 15:00:00 2025-03-17 15:00:00 Outpatient DEBRA RAMIREZ [id number] [facility] 2025-02-25 15:00:00 2025-02-25 15:00:00 Outpatient DEBRA RAMIREZ [id number] [facility] 2024-01-15 00:00:00 2024-01-15 16:57:37 Telephone Lea Bland [facility] 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 [facility] MATERNAL & CHILD HEALTH [facility] 1.2.840.114 350.1.13.10 4.2.7.2.686 [id number] [facility] 2024-01-15 00:00:00 2024-01-15 15:18:21 Refill Lea Bland [facility] 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 [facility] & CHILD [facility] 1.2.840.114 350.1.13.10 4.2.7.2.686 [id number] [facility] 2024-01-14 14:45:00 2024-01-14 15:53:32 Office Visit BaldoLea [facility] 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 [facility] CHILD [facility] 1.2.840.114 350.1.13.10 4.2.7.2.686 [id number] 107 [id number] [facility] 2024-01-14 14:45:00 2024-01-14 15:53:32 Out[facility] [id number] [facility] 2024-01-03 12:30:00 2024-01-03 12:30:00 Outpatient Priyanka BLAND LEA [facility] [id number] [facility] 2023-10-30 00:00:00 2023-10-30 00:00:00 [facility] 1.2840.114 350.1.13.10 4.2.7.2.686 [id number] [facility] 2023-08-01 00:00:00 2023-08-01 00:00:00 Telephone Jamie Pappas [facility] 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 [facility] & CHILD [facility] 1.2.840.114 350.1.13.10 4.2.7.2.686 [id number] 107 [id number] [facility] 2023-07-17 00:00:00 2023-07-17 00:00:00 [facility] 1.2840.114 350.1.13.10 4.2.7.2.686 [id number] [facility] 2023-04-16 00:00:00 2023-04-16 00:00:00 Refill Kody Landis [facility] 1..114 350.1.13.10 4.2.7.2.686 [id number] [facility] 2023-04-03 08:15:00 2023-04-03 09:07:28 Outpatient R JAMIE PAPPAS [facility] [id number] [facility] 2023-04-03 08:15:00 2023-04-03 09:07:28 Office Visit Jamie Pappas [facility] 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 [facility] & CHILD [facility] 1..114 350.1.13.10 4.2.7.2.686 [id number] 107 [id number] [facility] 2023-04-03 00:00:00 2023-04-03 00:00:00 Orders Only Doctor Unassigned, [place] [facility] .114 350.1.13.10 4.2.7.2.686 [id number] [facility] 2023-03-25 00:00:00 2023-03-25 00:00:00 Refill Jamie Pappas [facility] 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 [facility] & CHILD [facility] ..114 350.1.13.10 4.2.7.2.686 [id number] 107 [id number] [facility] 2023-01-01 14:45:00 2023-01-01 16:02:49 Outpatient R JAMIE PAPPAS [facility] [id number] [facility] 2023-01-01 14:45:00 2023-01-01 16:02:49 Office Visit Jamie Pappas [facility] 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 [facility] & CHILD [facility] 1..114 350.1.13.10 4.2.7.2.686 [id number] 107 [id number] [facility] 2023-01-01 09:00:00 2023-01-01 09:00:00 Outpatient R JAMIE PAPPAS [facility] [id number] [facility] 2023-01-01 09:00:00 2023-01-01 09:00:00 Outpatient R JAMIE PAPPAS [facility] [id number] [facility] 2023-01-01 00:00:00 2023-01-01 00:00:00 Orders Only Doctor Unassigned, [place] [facility] 1.840.114 350.1.13.10 4.2.7.2.686 [id number] [facility] 2022-12-26 13:30:00 2022-12-26 13:30:00 Outpatient R WILBUR COLLINS [facility] [id number] [facility] 2022-12-26 13:30:00 2022-12-26 13:30:00 Outpatient WILBUR URENA [facility] [id number] [facility] 2022-09-03 00:00:00 2022-09-03 00:00:00 Refill Jamie Pappas [facility] 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 [facility] MATERNAL & CHILD [facility] 1.840.114 350.1.13.10 4.2.7.2.686 [id number] [facility] 2022-06-08 00:00:00 2022-06-08 00:00:00 Telephone Jamie Pappas [facility] 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 [facility] & CHILD [facility] 1.840.114 350.1.13.10 4.2.7.2.686 [id number] [facility] 2022-06-06 13:30:00 2022-06-06 14:19:29 Outpatient R JAMIE PAPPAS [facility] [id number] [facility] 2022-06-06 13:30:00 2022-06-06 14:19:29 Office Visit Jamie Pappas [facility] 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 [facility]NAL [facility] 1..114 350.1.13.10 4.2.7.2.686 [id number] 107 [id number] [facility] 2022-06-06 00:00:00 2022-06-06 00:00:00 Orders Only Doctor Unassigned, [place] [facility] 1.114 350.1.13.10 4.2.7.2.686 [id number] [facility] 2022-04-04 09:00:00 2022-04-04 09:00:00 Outpatient R [facility] [id number] [facility] 2022-04-03 13:50:00 2022-04-03 17:11:00 Emergency X MANUELA ELDER [facility] ERT [id number] [facility] 2022-04-03 13:50:00 2022-04-03 17:11:00 Emergency Manuela Elder S [facility] 1.84.114 350.1.13.10 4.2.7.2.686 [id number] [facility] 2022-03-28 14:30:00 2022-03-28 14:30:00 Outpatient R [facility] [id number] [facility] 2022-01-25 00:00:00 2022-01-25 00:00:00 Telephone Elham Read [facility] 1..114 350.1.13.10 4.2.7.2.686 [id number] [facility] 2022-01-13 00:00:00 2022-01-13 00:00:00 Patient Secure Msg Doctor Unassigned, [place] [facility] 1.114 350.1.13.10 4.2.7.2.686 [id number] [facility] 2022-01-12 00:00:00 2022-01-12 00:00:00 Patient Secure Msg Doctor Unassigned, [place] [facility] MEDICAL OFFICE BUILDING 1..84.114 350.1.13.10 4.2.7.2.686 [id number] [facility] 2022-01-09 00:00:00 2022-01-09 00:00:00 Patient Secure Msg Doctor Unassigned, [place] [facility] MEDICAL OFFICE BUILDING 1.284.114 350.1.13.10 4.2.7.2.686 [id number] [facility] 2022-01-08 00:00:00 2022-01-08 00:00:00 RefKody Nazario [facility] BUILD[facility] 1..840.114 350.1.13.10 4.2.7.2.686 [id number] [facility] 2022-01-08 00:00:00 2022-01-08 00:00:00 Telephone Elham Read [facility] MEDICAL OFFICE BUILDING 1.2.840.114 350.1.13.10 4.2.7.2.686 [id number] [facility] 2022-01-02 15:30:00 2022-01-02 16:09:57 Outpatient R PABLO ALMENDAREZ STRAHIL [facility] [id number] [facility] 2022-01-02 15:30:00 2022-01-02 16:09:57 Nurse Visit Nurse, [facility] Pablo Almendarez [facility] BUILD[facility] 1..840.114 350.1.13.10 4.2.7.2.686 [id number] [facility] 2022-01-02 09:00:00 2022-01-02 09:15:00 Yield Engineer Visit [facility] Sleep Lab HunterHailey monaezahira Freeman [facility] 1.2.840.114 350.1.13.10 4.2.7.2.686 [id number] [facility] 2022-01-02 00:00:00 2022-01-02 00:00:00 Refill Bri [facility] PROFESSIO NAL BUILDING 1.2840.114 350.1.13.10 4.2.7.2.686 [id number] [facility] 2022-01-01 00:00:00 2022-01-01 00:00:00 Patient Secure Msg [facility] 1.20.114 350.1.13.10 4.2.7.2.686 [id number] [facility] 2021-12-28 10:00:00 2021-12-28 10:00:00 Outpatient Priyanka LANDISVISHALKEON [facility] [id number] [facility] 2021-12-28 00:00:00 2021-12-28 00:00:00 Case Management Bri [facility] PROFESS NAL BUILDING 1.2840.114 350.1.13.10 4.2.7.2.686 [id number] [facility] 2021-12-28 00:00:00 2021-12-28 00:00:00 Orders Only Doctor Unassigned, [place] [facility] 1.2840.114 350.1.13.10 4.2.7.2.686 [id number] [facility] 2021-12-26 13:30:00 2021-12-26 14:45:53 Outpatient R WILBUR COLLINS [facility] [id number] [facility] 2021-12-26 13:30:00 2021-12-26 14:45:53 Office Visit Wilbur Collins [facility] 1.2.840.114 350.1.13.10 4.2.7.2.686 [id number] [facility] 2021-12-26 13:30:00 2021-12-26 14:45:53 Outpatient R WILBUR COLLINS [facility] [id number] [facility] 2021-12-26 13:30:00 2021-12-26 13:30:00 Outpatient R WILBUR COLLINS [facility] [id number] [facility] 2021-12-26 08:30:00 2021-12-26 08:30:00 Outpatient R VISHAL LANDISHUGH [facility] [id number] [facility] 2021-12-25 14:40:00 2021-12-25 15:14:17 Outpatient R VISHAL LANDISHUGH [facility] [id number] [facility] 2021-12-25 14:40:00 2021-12-25 15:14:17 Outpatient R VISHAL LANDISHUGH [facility] [id number] [facility] 2021-12-25 14:40:00 2021-12-25 15:14:17 [facility] 1.2.840.114 350.1.13.10 4.2.7.2.686 [id number] [facility] 2021-12-25 14:40:00 2021-12-25 15:14:17 Outpatient R VISHAL LANDISHUGH [facility] [id number] [facility] 2021-12-22 09:00:00 2021-12-22 09:00:00 Outpatient R ELHAM READ [facility] [id number] [facility] 2021-12-22 09:00:00 2021-12-22 09:00:00 Outpatient R ELENA READLIE [facility] [id number] [facility] 2021-12-21 10:30:00 2021-12-21 11:26:34 Outpatient R JACEK, ELHAM [facility] [id number] [facility] 2021-12-21 10:30:00 2021-12-21 11:26:34 Office Visit Elham Read ON LICENSE OF [facility] 1.2.840.114 350.1.13.10 4.2.7.2.686 [id number] [facility] 2021-12-21 10:30:00 2021-12-21 11:26:34 Outpatient R ELENA READLIE [facility] [id number] [facility] 2021-12-21 00:00:00 2021-12-21 00:00:00 Orders Only Doctor Unassigned, [place] [facility] 1.2.840.114 350.1.13.10 4.2.7.2.686 [id number] [facility] 2021-08-14 14:00:00 2021-08-14 14:00:00 Outpatient R CONCEPCION LIND [facility] [id number] [facility] 2021-06-02 13:00:00 2021-06-02 13:00:00 Outpatient R CONCEPCION LIND [facility] [id number] [facility] 2021-05-19 13:30:00 2021-05-19 13:30:00 Outpatient R ELENA READLIE [facility] [id number] [facility] 2021-02-28 10:00:00 2021-02-28 10:00:00 Outpatient R [facility] [id number] [facility] 2021-02-15 13:30:45 2021-02-15 14:28:58 Office Visit Wilbur Collins [facility] Building 1.2.840.114 350.1.13.10 4.2.7.2.686 [id number] [facility] 2021-02-15 13:30:00 2021-02-15 13:30:00 Outpatient R WILBUR COLLINS [facility] [id number] [facility] 2021-01-16 09:00:00 2021-01-16 09:00:00 Outpatient R WILBUR COLLINS [facility] [id number] [facility] 2020-12-30 08:45:00 2020-12-30 08:45:00 Outpatient R [facility] [id number] [facility] 2020-12-29 00:00:00 2020-12-29 00:00:00 Case Management Wilbur Collins [facility] 1.2.840.114 350.1.13.10 4.2.7.2.686 [id number] [facility] 2020-12-26 08:59:01 2020-12-26 09:47:44 Office Visit Wilbur Collins [facility] Building 1.2.840.114 350.1.13.10 4.2.7.2.686 [id number] [facility] 2020-12-26 08:30:00 2020-12-26 09:00:00 Office Visit Wilbur Collins [facility] Building 1.2.840.114 350.1.13.10 4.2.7.2.686 [id number] [facility] 2020-12-26 08:30:00 2020-12-26 08:30:00 Outpatient R WILBUR COLLINS [facility] [id number] [facility] 2020-12-26 08:30:00 2020-12-26 08:30:00 Outpatient R COLLINS, WILBUR [facility] [id number] [facility] 2020-12-26 00:00:00 2020-12-26 00:00:00 Orders Only Doctor Unassigned, [place] [facility] 1.0.114 350.1.13.10 4.2.7.2.686 [id number] [facility] 2020-07-13 10:30:00 2020-07-13 10:30:00 Outpatient WILBUR URENA [facility] [id number] [facility] 2020-07-04 00:00:00 2020-07-04 00:00:00 Refill Elham Read [facility] Office Building One 1.114 350.1.13.10 4.2.7.2.686 [id number] [facility] 2020-07-04 00:00:00 2020-07-04 00:00:00 Refill Wilbur Collins [facility] Building 1.114 350.1.13.10 4.2.7.2.686 [id number] 134 [id number] [facility] 2020-07-04 00:00:00 2020-07-04 00:00:00 Refill Elham Read [facility] Office Building One .114 350.1.13.10 4.2.7.2.686 [id number] 2020-07-04 00:00:00 2020-07-04 00:00:00 Refill Wilbur Collins [facility] 1.114 350.1.13.10 4.2.7.2.686 [id number] 134 [id number] 2020-06-24 16:00:00 2020-06-24 16:00:00 Outpatient R ELHAM READ [facility] [id number] [facility] 2020-06-17 00:00:00 2020-06-17 00:00:00 Telephone Paulo Catherine [facility] One 1.2.840.114 350.1.13.10 4.2.7.2.686 [id number] [facility] 2020-06-17 00:00:00 2020-06-17 00:00:00 Telephone Paulo Catherine [facility] Office Building One 1.2.840.114 350.1.13.10 4.2.7.2.686 [id number] 2020-04-22 14:52:14 2020-04-22 23:59:00 Hospital Encounter Concepcion Lind [facility] 1.2.840.114 350.1.13.10 4.2.7.2.686 [id number] [facility] 2020-04-22 14:52:14 2020-04-22 23:59:00 Hospital Encounter Concepcion Lind [facility] 1.2.840.114 350.1.13.10 4.2.7.2.686 [id number] 2020-04-22 14:01:23 2020-04-22 14:21:23 [facility] 1.2.840.114 350.1.13.10 4.2.7.2.686 [id number] [facility] 2020-04-22 14:01:23 2020-04-22 14:21:23 Urgent Care Provider, [facility] Building One 1.2.840.114 350.1.13.10 4.2.7.2.686 [id number] 2020-04-22 14:00:00 2020-04-22 14:00:00 Outpatient R [facility] [id number] [facility] 2020-04-22 00:00:00 2020-04-22 00:00:00 Letter (Out) Doctor Unassigned, [place] [facility] 1.2.840.114 350.1.13.10 4.2.7.2.686 [id number] [facility] 2020-04-22 00:00:00 2020-04-22 00:00:00 Orders Only Doctor Unassigned, [place] [facility] 1.2.840.114 350.1.13.10 4.2.7.2.686 [id number] [facility] 2020-04-22 00:00:00 2020-04-22 00:00:00 Letter (Out) Doctor Unassigned, [place] [facility] 1.2.840.114 350.1.13.10 4.2.7.2.686 [id number] 2020-04-22 00:00:00 2020-04-22 00:00:00 Orders Only Doctor Unassigned, [place] [facility] 1.2.840.114 350.1.13.10 4.2.7.2.686 [id number] 2020-04-07 00:00:00 2020-04-07 00:00:00 Wilbur Oleary [facility] 1.2.840.114 350.1.13.10 4.2.7.2.686 [id number] 134 [id number] [facility] 2020-04-07 00:00:00 2020-04-07 00:00:00 Refill Wilbur Collins [facility] 1.2.840.114 350.1.13.10 4.2.7.2.686 [id number] 2020-01-27 13:30:00 2020-01-27 13:30:00 Outpatient R WILBUR COLLINS [facility] [id number] [facility] 2020-01-24 23:53:22 2020-01-25 03:19:00 Emergency Yarima, [place] [facility] 1.2.840.114 350.1.13.10 4.2.7.2.686 [id number] [facility] 2020-01-24 23:53:22 2020-01-25 03:19:00 Emergency Manuela Elder [facility] 1.2.840.114 350.1.13.10 4.2.7.2.686 [id number] 2020-01-24 00:00:00 2020-01-24 00:00:00 Orders Only Doctor Unassigned, [place] [facility] 1.2.840.114 350.1.13.10 4.2.7.2.686 [id number] [facility] 2020-01-24 00:00:00 2020-01-24 00:00:00 Orders Only Doctor Unassigned, [place] [facility] 1.2.840.114 350.1.13.10 4.2.7.2.686 [id number] 2020-01-08 00:00:00 2020-01-08 00:00:00 Refill Wilbur Collins [facility] 1.2.840.114 350.1.13.10 4.2.7.2.686 [id number] 134 [id number] [facility] 2020-01-08 00:00:00 2020-01-08 00:00:00 Refill Wilbur Collins [facility] 1.2.840.114 350.1.13.10 4.2.7.2.686 [id number] 2019-12-25 00:00:00 2019-12-25 00:00:00 Telephone Wilbur Collins [facility] 1.2.840.114 350.1.13.10 4.2.7.2.686 [id number] 134 [id number] [facility] 2019-12-25 00:00:00 2019-12-25 00:00:00 Telephone Wilbur Collins [facility] 1.2.840.114 350.1.13.10 4.2.7.2.686 [id number] 134 [id number] 2019-12-17 00:00:00 2019-12-17 00:00:00 [facility]phone [facility] 1.2.840.114 350.1.13.10 4.2.7.2.686 [id number] 134 [id number] [facility] 2019-12-17 00:00:00 2019-12-17 00:00:00 Telephone Wilbur Collins [facility] 1.2.840.114 350.1.13.10 4.2.7.2.686 [id number] 134 [id number] 2019-12-16 00:00:00 2019-12-16 00:00:00 Telephone [facility] 1.2.840.114 350.1.13.10 4.2.7.2.686 [id number] 134 [id number] [facility] 2019-12-16 00:00:00 2019-12-16 00:00:00 Telephone Ad[facility]rystal [facility] 1.2.840.114 350.1.13.10 4.2.7.2.686 [id number] 134 [id number] 2019-11-19 00:00:00 2019-11-19 00:00:00 Refill Wilbur [facility] 1.2.840.114 350.1.13.10 4.2.7.2.686 [id number] 134 [id number] [facility] 2019-11-19 00:00:00 2019-11-19 00:00:00 Refill [facility] 1.2.840.114 350.1.13.10 4.2.7.2.686 [id number] 134 [id number] 2019-04-11 11:55:29 2019-04-11 13:55:13 [facility] [place] Unknown, [facility] [place] 1.2.840.114 350.1.13.10 4.2.7.2.686 [id number] 370 [id number] [facility] 2019-04-11 11:55:29 2019-04-11 13:55:13 Urgent Care Corinne Hi [facility] [place] 1.2.840.114 350.1.13.10 4.2.7.2.686 [id number] 370 [id number] 2019-04-11 00:00:00 2019-04-11 00:00:00 Orders Only Doctor Unassigned, [place] [facility] 1.2.840.114 350.1.13.10 4.2.7.2.686 [id number] [facility] 2019-04-11 00:00:00 2019-04-11 00:00:00 Orders Only Doctor Unassigned, [place] [facility] 1.2.840.114 350.1.13.10 4.2.7.2.686 [id number] Results Test Description Test Time Test Comments Results Result Co mments Source [facility] [id number] 13:33:00* Test Item Value Reference Range Interpretation Comme nts POCT PREG (test code = 1605) Negative On board controls acceptable with C Line (test code = 3574) Yes POCT PREG LOT # (test code = 3575) POCT PREG TEST DATE ( test code = 3576) [facility] [id number] 14:57:20* Test Item Value Reference Range Interpretation Comme nts Syphilis IgG/IgM (test code = 11627-6) Non-reactive Non-reactive EDGAR (test code = EDGAR) Non-reactive - No serologic evidence of T. pallidum infection. Cannot exclude incubating or early syphilis. Submit a second specimen in 2-4 weeks if syphilis is clinically suspected. Equivocal - Further testing to follow. Reactive - Further testing to follow. Lab Interpretation (test code = 91660-5) Normal [facility] [id number] 14:57:20* Test Item Value Reference Range Interpretation Comme nts Syphilis IgG/IgM (test code = 37237-8) Non-reactive Non-reactive EDGAR (test code = EDGAR) Non-reactive - No serologic evidence of T. pallidum infection. Cannot exclude incubating or early syphilis. Submit a second specimen in 2-4 weeks if syphilis is clinically suspected. Equivocal - Further testing to follow. Reactive - Further testing to follow. Lab Interpretation (test code = 16609-7) Normal [facility]2 AG-AB WITH [id number] 09:49:35* Test Item Value Reference Range Interpretation Comme [facility] HIV Semi-quantitative (test code = 12347-9) 0.10 Negative EDGAR (test code = EDGAR) Non-reactive for HIV-1 antigen and HIV-1/HIV-2 antibodies. ?No laboratory evidence of HIV infection. ?Repeat in 2-4 weeks if acute HIV infection is suspected. [facility] 1/2 AG-AB WITH [id number] 09:49:35* Test Item Value Reference Range Interpretation Comme [facility] HIV Semi-quantitative (test code = 15219-1) 0.10 Negative EDGAR (test code = EDGAR) Non-reactive for HIV-1 antigen and HIV-1/HIV-2 antibodies. ?No laboratory evidence of HIV infection. ?Repeat in 2-4 weeks if acute HIV infection is suspected. [facility]. METABOLIC PANEL (25713)2022-04-03 20:55:22* Test Item Value Reference Range Interpretation Comme nts NA (test code = 0932277408) 136 mmol/L 135-145 K (test code = 5132919011) 4.1 mmol/L 3.5-5 CL (test code = 9394087487) 103 mmol/L 98-108 CO2 TOTAL (test code = 2104688158) 23 mmol/L 23-31 AGAP (test code = 8287621163) 2-16 BUN (test code = 4834203536) 8 mg/dL 7-23 GLUCOSE (test code = 7250050852) 108 mg/dL 70-110 CREATININE (test code = 8211762897) 0.57 mg/dL 0.5-1.04 TOTAL BILI (test code = 6253599434) 0.4 mg/dL 0.1-1.1 CALCIUM (test code = 1510930909) 9.2 mg/dL 8.6-10.6 T PROTEIN (test code = 0743566278) 7.2 g/dL 6.3-8.2 ALBUMIN (test code = 0676129305) 4.7 g/dL 3.5-5 ALK PHOS (test code = 3289664950) 74 U/L 34-122 ALTv (test code = 1742-6) 75 U/L 5-35 H AST(SGOT) (test code = 4985312593) 61 U/L 13-40 H eGFR (test code = 8761893955) mL/min/1.73m2 EDGAR (test code = EDGAR) Association of Glomerular Filtration Rate (GFR) and Staging of Kidney Disease* + --+ --+ ------+| GFR (mL/min/1.73 m2) ?| With Kidney Damage ?| ?Without Kidney Damage+ --------+ --------+ +| ?>90 ?| ?Stage one ?| ? Normal ?+ ---+ ---+ -------+| ?60-89 ?| ?Stage two ?| ? Decreased GFR ? + --+ --+ ------+| ?30-59 ?| ?Stage three ?| ? Stage three ? + --+ --+ ------+| ?15-29 ?| ?Stage four ? | ? Stage four ?+ ---+ ---+ -------+| ?<15 (or dialysis) ? ?| ?Stage five ? | ? Stage five ?+ ---+ ---+ -------+ *Each stage assumes the associated GFR level has been in effect for at least three months. ?Stages 1 to 5, with or without kidney disease, indicate chronic kidney disease. Notes: Determination of stages one and two (with eGFR >59mL/min/1.73 m2) requires estimation of kidney damage for at least three months as defined by structural or functional abnormalities of the kidney, manifested by either:Pathological abnormalities or Markers of kidney damage (including abnormalities in the composition of the blood or urine or abnormalities in imaging tests). Lab Interpretation (test code = 06532-1) Abnormal [facility] ChildrenLIPASE2022-08-30 20:54:21* Test Item Value Reference Range Interpretation Comme nts LIPASE (test code = 2218505714) 100 U/L 0-220 Lab Interpretation (test cod e = 83003-3) Normal [facility] ChildrenCBC WITH [id number] 20:52:24* Test Item Value Reference Range Interpretation Comme nts WBC (test code = 6690-2) See_Comment H [Automated Speed Dating by Chantilly Lacea ge] The system which generated this result transmitted reference range: 4.30 - 11.10 10*3/?L. The reference range was not used to interpret this result as normal/abnormal. RBC (test code = 789-8) See_Comment H [Automated messa ge] The system which generated this result transmitted reference range: 3.93 - 5.25 10*6/?L. The reference range was not used to interpret this result as normal/abnormal. HGB (test code = 718-7) 14.5 g/dL 11.6-15 HCT (test code = 4544-3) 43.6 % 35.7-45.2 MCV (test code = 787-2) 80.7 fL 80.6-95.5 MCH (test code = 785-6) 26.9 pg 25.9-32.8 MCHC (test code = 786-4) 33.3 g/dL 31.6-35.1 RDW-SD (test code = 11861-6) 40.9 fL 39-49.9 RDW-CV (test code = 788-0) 14.1 % 12-15.5 PLT (test code = 777-3) See_Comment [Automated messa ge] The system which generated this result transmitted reference range: 166 - 358 10*3/?L. The reference range was not used to interpret this result as normal/abnormal. MPV (test code = 49340-1) 9.7 fL 9.5-12.9 NRBC/100 WBC (test code = 7182120883) See_Comment [Automated me ssage] The system which generated this result transmitted reference range: 0.0 - 10.0 /100 WBCs. The reference range was not used to interpret this result as normal/abnormal. NRBC x10^3 (test code = 2101406288) See_Comment [Automated messa ge] The system which generated this result transmitted reference range: 10*3/?L. The reference range was not used to interpret this result as normal/abnormal. GRAN MAT (NEUT) % (test code = 770-8) 70.8 % IMM GRAN % (test code = 9103671816) 0.40 % LYMPH % (test code = 736-9) 22.1 % MONO % (test code = 5905-5) 4.7 % EOS % (test code = 713-8) 1.5 % BASO % (test code = 706-2) 0.5 % GRAN MAT x10^3(ANC) (test code = 4287521535) 8.73 10*3/uL 1.88-7.09 H IMM GRAN x10^3 (test code = 0241819973) 0.05 10*3/uL 0-0.06 LYMPH x10^3 (test code = 731-0) 2.73 10*3/uL 1.32-3.29 MONO x10^3 (test code = 742-7) 0.58 10*3/uL 0.33-0.92 EOS x10^3 (test code = 711-2) 0.18 10*3/uL 0.03-0.39 BASO x10^3 (test code = 704-7) 0.06 10*3/uL 0.01-0.07 Lab Interpretation (test code = 08209-7) Abnormal [facility] [id number] 20:27:00* Test Item Value Reference Range Interpretation Comme nts POCT PREG (test code = 1605) Negative On board controls acceptable with C Line (test code = 3574) Present POCT PREG LOT # (test code = 3575) [id number] POCT PREG TEST DATE ( test code = 3576) 07-04-2023 Lab Interpretation (test cod e = 90157-3) Normal [facility] [id number] 19:51:00* Test Item Value Reference Range Interpretation Comme nts POCT PREG (test code = 1605) Negative On board controls acceptable with C Line (test code = 3574) Yes POCT PREG LOT # (test code = 3575) POCT PREG TEST DATE ( test code = 3576) [facility] Notes Mass of upper outer quadrant of right breastThis document was completed using voice recognition software. This can produceRachel TAMRA Ramirez[1]Upcoming Encounters Date/Time Note Provider Source 2025-03-18 14:00:32 [facility] 2025-03-18 14:00:32 Debra Ramirez PA-C - 03/18/2025 1:35 PM CDT Images from the original note were not included. HPI: Bucky Goldberg is a 30 year old female is here for New Patient and Establish Care (Lump to right breast for about 3 weeks) . New patient; History of hypertension during . Has not had high BP since . Breast lump: Found 3 weeks ago. It is not tender. She does have family history of breast cancer- mother diagnosed with breast cancer at age 47. Grandmother diagnosed later in life. No rashes or abnormal nipple discharge. Current medications: Current Medications[1] Allergies: Flonase [fluticasone] and Naproxen sodium I have reviewed the past Medical, Family, and Social history. Review of Systems: All systems are negative, except those pertinent items mentioned in the HPI. Review of Systems Constitutional: Negative for chills and fever. Skin: Negative for rash and wound. Physical Exam: BP 132/84 (Side: Left Arm, Position: SITTING, Cuff Size: Medium Adult) | Pulse 96 | Temp 97.9 ?F (36.6 ?C) (Tympanic) | Resp 18 | Ht 5' (1.524 m) | Wt 233 lb (105.7 kg) | LMP 03/05/2025 (Exact Date) | SpO2 98% | BMI 45.50 kg/m? Physical Exam Exam conducted with a molasses feed mixer present (Nicole). Chest: Chest wall: No mass, lacerations or deformity. Breasts: Right: Mass present. No swelling, bleeding, inverted nipple, nipple discharge, skin change or tenderness. Left: No swelling, bleeding, inverted nipple, mass, nipple discharge, skin change or tenderness. Comments: 1 cm non-tender lump of the right upper outer quadrant Lymphadenopathy: Upper Body: Right upper body: No supraclavicular, axillary or pectoral adenopathy. Left upper body: No supraclavicular, axillary or pectoral adenopathy. Assessment and Plan: Bucky was seen today for new patient and establish care. Diagnoses and all orders for this visit: - MAMMO 3D SINTIA DIAGNOSTIC BILAT; Future - US RT BREAST TARGETED; Future Will obtain diagnostic mammogram of both breasts and targeted right breast US to evaluate further. Return in about 1 week (around 03/25/2025) for annual physical. hand stemmer errors that can at times significantly distort words and phrases. Please interpret any aspect of the note that is nonsensical in light of this fact. SP: Dr. Osbaldo García, DO [facility] No current outpatient medications on file. No current facility-administered medications for this visit. [facility] Scheduled Orders Name Type Priority Associated Diagnoses Orde r Schedule MAMMO 3D SINTIA DIAGNOSTIC BILAT Imaging Routine Mass of upper outer quadrant of right breast Expected: 03/18/2025, Expires: 09/18/2026 US RT BREAST TARGETED Imaging Routine Mass o f upper outer quadrant of right breast Expected: 03/18/2025, Expires: 09/18/2025 Health Maintenance Due Date Last Done Comments Physical Exam 01/25/2014 Tdap Vaccines 01/25/2015 Lipid Panel 2016 PAP SMEAR -01/25/2017 COVID-19 Vaccine ( - 2023-2 5 season) 2024 Influenza Vaccines (#1) 2025 04/29/20, 06/21/2019 RSV Vaccines (1 - 1-dose 75+ series) 01/25/2071 Pneumococcal Vaccine: Pediatrics (0 to 5 Years) and At-Risk Patients (6 to 64 Years) Aged Out No longer eligible b ased on patient's age to complete this topic [facility]2025-08-14 14:00:32 Diagnosis Mass of upper outer quadrant of right breast - Primary [place] 949855-08-14 14:00:[address]08-14 13:32:56 Chief Complaint Patient presents with New Patient Establish Care Lump to right breast for about 3 weeks Judith Mondragon LVN [place] [address]-06-12 16:57:08 Called patient, notified positive for BV. Educated patient on antibiotics, daily probiotics, and BV prevention measures. Pt verbalized understanding. AMBER Herrera RN 01/15/2024 4:57 PM [place] 746184-06-12 15:19:14 2nd attempt to call patient, no answer, left vm. [facility] Sera Andersen [place] [address]-06-12 12:22:28 Attempted to call patient, no answer, left vm. [place] 746184-06-12 11:43:45 Please inform pt that is positive for BV. Rx for metronidazole 500mg BID x 7 days sent to pharmacy. RTC in 2 weeks is symptoms persist or worsen [place] 746183-12-28 10:30:10 Disregard, pt already picked up prescription. TINNER Sera Andersen [facility]2023-12-28 10:01:37 90 day prescription request received from [facility] for: RADHA 0.35 MG Tablet [facility] 11:23:59 Refill request for Metoprolol, TORO 12/25/21 and Labs 12/21/21 does not meet ambulatory guidelines Lab orders placed, 90 day refill provided for continuity of care LVM to call clinic to schedule appointment Refill sent to [facility]/pharmacy #[id number] [place] [address] [address]rea L[facility]pez [facility]"
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
[2025-05-21] MEDS ORDERED: ACETAMINOPHEN 500 MG TAB ONE (17:12)
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
[2025-05-21 22:00] VITALS: BP 119/77; O2SAT 96
== END 2025-05-21 17:28 | disposition home or self-care (01) ==
LOC: ER 15:07
DX: S00.83XA Contusion of other part of head, initial encounter (principal); S60.012A Contusion of left thumb without damage to nail, initial encounter; R10.32 Left lower quadrant pain; V49.9XXA Car occupant (driver) (passenger) injured in unspecified traffic accident, initial encounter
CPT/HCPCS: 99281